=== PATIENT | male | born 1975 | race Caucasian/White ===

== ENCOUNTER 2023-03-25 11:33 | Emergency (ER) | payer OTHER, BC ==
[~2023-03-25 11:33] MED LIST: ALEVE220 MG PO; FLEXERIL5 MG PO; GLUCOSAMINE1000 MG PO; MULTIVITAMINS1 EAC7 PO; NAPROXEN500 MG PO; NORCO 5-325 TA1 EACH PO; ZYRTEC10 MG PO
--- OUTSIDE RECORDS SUMMARY | 2023-03-25 11:43 | XMS ---
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 E.Milo VISIT COUNT (12 MO.) [address] [place] [address] Shira Espinoza ([facility] [place]) TOTAL 2 NOTE: Visits indicate total known visits. ED/UCC VISIT TRACKING (12 MO.) 03/25/2023 11:34 [facility] TYPE: Emergency COMPLAINT: - SOB, COLD, WEAK 03/22/2023 08:27 [facility] ([facility] [place]) TYPE: Emergency DIAGNOSES: - Bronchitis, not specified as acute or chronic - Shortness of Breath - sob INPATIENT VISIT TRACKING (12 MO.) No inpatient visits to display in this time frame [email or web address]
[2023-03-25] MEDS ORDERED: VENTOLIN HFA18 GM INH (11:45)
[2023-03-25 13:24] LABS: BILIRUBIN, URINE NEGATIVE (negative); BLOOD/HGB, URINE NEGATIVE (Negative); KETONE, URINE NEGATIVE (Negative); LEUK ESTERASE, URINE NEGATIVE (negative); NITRITE, URINE NEGATIVE (negative); PH, URINE 6.5 (5-7)
[2023-03-25] MEDS ORDERED: PREDNISONE20 MG PO (13:26)
[2023-03-25 13:45] VITALS: BP 111/71
== END 2023-03-25 13:46 | disposition home or self-care (01) ==
LOC: ED 11:33
PROVIDERS: Family Medicine
DX: J20.8 Acute bronchitis due to other specified organisms (principal); R39.9 Unspecified symptoms and signs involving the genitourinary system; F17.200 Nicotine dependence, unspecified, uncomplicated; Z79.51 Long term (current) use of inhaled steroids
CPT/HCPCS: 36415; 71045; 81003; 85379; 94640; 96374; 99285-25; J1100